=== PATIENT | male | born 1975 ===

== ENCOUNTER 2019-01-29 03:09 | Emergency (ER) | payer OTHER ==
[2019-01-29] MEDS ORDERED: Oxycodone/Acetaminophen 5/325 mg Tab PO STA (03:35)
[2019-01-29] MEDS ORDERED: Oxycodone/Acetaminophen 5/325 mg Tab ONE (03:49)
--- NOTE | 2019-01-29 04:15 | ED PDOC ---
Lower Extremity Pain/Injury Time Seen by Provider: 01/29/19 03:29 Chief Complaint (Nursing): Lower Extremity Problem/Injury Chief Complaint (Provider): Lower Extremity Problem/Injury History Per: Patient History/Exam Limitations: no limitations Additional Complaint(s): 43 y/o male presents to the ED complaining of pain to his left big toe. Patient reports he was carrying a microwave while climbing the stairs when he dropped it on his left big toe. Patient reports he has pain to his foot and cannot wiggle his toe. Denies bleeding or any other pain. Past Medical History Reviewed: Historical Data, Nursing Documentation, Vital Signs Vital Signs: Last Vital Signs Temp 99.3 F 01/29/19 03:15 Pulse 120 H 01/29/19 03:15 Resp 16 01/29/19 03:15 BP 156/92 H 01/29/19 03:15 Pulse Ox 98 01/29/19 03:15 - Family History Family History: States: Unknown Family Hx - Home Medications Home Medications: Ambulatory Orders Medication Instructions Recorded Naproxen [Naprosyn Tab] 375 mg PO Q8 PRN #21 tab 09/25/16 diaZEpam [Valium] 5 mg PO Q6 PRN #6 tab 09/25/16 - Allergies Allergies/Adverse Reactions: Allergies Allergy/AdvReac Type Severity Reaction Status Date / Time No Known Allergies Allergy Verified 09/25/16 11:54 Review of Systems ROS Statement: Except As Marked, All Systems Reviewed And Found Negative Musculoskeletal: Positive for: Foot Pain Physical Exam - Reviewed Nursing Documentation Reviewed: Yes Vital Signs Reviewed: Yes - Physical Exam Appears: Positive for: Well, Non-toxic, No Acute Distress Head Exam: Positive for: ATRAUMATIC, NORMAL INSPECTION, NORMOCEPHALIC Skin: Positive for: Normal Color, Warm, DRY Eye Exam: Positive for: EOMI, Normal appearance, PERRL Pulses-Dorsalis Pedis (L): 2+ Pulses-Dorsalis Pedis (R): 2+ Extremity: Positive for: Deformity (visible deformity to left hallux), Other (dorsal deviation at proximal joint). Negative for: Normal ROM (unable to move left hallux) Neurological/Psych: Positive for: Awake, Alert, Normal Tone. Negative for: Motor/Sensory Deficits - ECG O2 Sat by Pulse Oximetry: 98 (RA) Pulse Ox Interpretation: Normal Medical Decision Making Medical Decision Making: Time: 03:31 MDM: Workup for dislocation vs. fracture * Percocet for pain * X-rays * Most likely will order podiatry consult 05:32 Left foot RAD Findings: Acute complete dorsal dislocation of the proximal phalanx of the great at the level of the first metatarsophalangeal joint. Associated displaced fracture of the base of the proximal to the great toe. Overlying soft tissue edema and swelling. There is calcaneal spur formation. There is enthesophyte formation at the calcaneal insertion of the Achilles' tendon. Normal visualized distal tibia and medial malleolus. Normal visualized distal fibula and lateral malleolus. Normal tibiotalar articulation and ankle mortise. Normal visualized talus. The visualized subtalar, talonavicular, calcaneocuboid and tarsal articulations are normal. Impression: Acute complete dorsal dislocation of the proximal phalanx of the great at the level of the first metatarsophalangeal joint. Associated displaced fracture of the base of the proximal to the great toe. Overlying soft tissue edema and swelling. 06:42 Patient was seen and evaluated by podiatry. Dislocation was reduced and foot was placed in cast. Patient is to follow up in podiatry clinic within 1 week. Patient was given percocet for pain control as well as crutches and crutches instruction. Return parameters discussed. Scribe Attestation: Documented by Ab Kevin, acting as a scribe for Delia Sorto MD. Provider Scribe Attestation: All medical record entries made by the Scribe were at my direction and personally dictated by me. I have reviewed the chart and agree that the record accurately reflects my personal performance of the history, physical exam, medical decision making, and the department course for this patient. I have also personally directed, reviewed, and agree with the discharge instructions and disposition. Disposition - Disposition Condition: IMPROVED Forms: TRAFI)
[2019-01-29] MEDS ORDERED: Lidocaine 1% Inj (20ml) IJ ONE (06:09)
[2019-01-29] MEDS ORDERED: Lidocaine Hydrochloride 1% 0 ML ONE (06:11)
[2019-01-29 06:15] VITALS: BP 148/87; PULSE 91; RESP 17; TEMP 98.7
[2019-01-29] MEDS ORDERED: Lidocaine Hydrochloride 1% 10 ML ONE (06:19)
[2019-01-29 06:44] VITALS: O2SAT 98
--- NOTE | 2019-01-29 09:32 | CP.PCM.CON ---
History of Present Illness - History of Present Illness History of Present Illness: Podiatry Consult Note - Dr. Romero 43 year old male patient with no PMH seen and evaluated in the ED for left big toe pain, deformity and swelling. Patient states that his left foot was caught underneath him earlier today while carrying a microwave. He states that she immediately had swelling and felt pain and his left big toe poped out. Patient states that that pain and swelling got worse. He states that the pain is 8/10 when the toe is touched. Patient denies any tingling, numbness or burning sensation in his left foot. She denies any recent fever, nausea, vomiting, cough, chills or shortness of breathing. PMH: None PSH: None Allergies: NKDA. Social Hx: Denies smoking, EtOH use or illicit drug use. Review of Systems - Review of Systems Review of Systems: As per HPI Past Patient History - Past Social History Smoking Status: Never Smoked - PSYCHIATRIC Hx Substance Use: No - SURGICAL HISTORY Hx Surgeries: No - ANESTHESIA Hx Anesthesia: No Meds Home Medications: Home Medication List Medication Instructions Recorded Confirmed Type oxyCODONE/Acetaminophen [Percocet 1 ea PO Q6 #20 tab 01/29/19 Rx 5/325 mg Tab] Allergies/Adverse Reactions: Allergies Allergy/AdvReac Type Severity Reaction Status Date / Time No Known Allergies Allergy Verified 09/25/16 11:54 Physical Exam - Constitutional Appears: Well, Non-toxic, No Acute Distress - Head Exam Head Exam: ATRAUMATIC, NORMOCEPHALIC - Extremities Exam Additional comments: Left lower extremity focused exam: VASC: DP/PT pulses palpable 2/4; cap refill <3 seconds to all digits; temp gradient warm to cool, non-pitting edema and mild ecchymosis noted to the left big toe. NEURO: Gross and protective sensations are intact. DERM: Non-pitting edema and mild ecchymosis noted to the left big toe. No open lesions, No clinical signs of active infection. MSK: Pain on palpating the hallux. Pain with hallux ROM. Left hallux dorsally displaced at the MPJ. Muscle power intact 5/5 to all groups. - Neurological Exam Neurological exam: Alert, Oriented x3 - Psychiatric Exam Psychiatric exam: Normal Affect, Normal Mood Results - Vital Signs Recent Vital Signs: Last Vital Signs Temp 98.7 F 01/29/19 06:14 Pulse 91 H 01/29/19 06:14 Resp 17 01/29/19 06:14 BP 148/87 01/29/19 06:14 Pulse Ox 98 01/29/19 06:43 Assessment & Plan - Assessment and Plan (Free Text) Assessment: 43 year old male patient with no PMH seen and evaluated in the ED for left big toe fracture and dislocation of the left 1st MPJ Plan: Patient seen and evaluated at the bedside in the ED Plan discussed with Dr. Romero Charts and vitals reviewed: Afebrile. X-ray L foot: L 1st MPJ dorsal displacemment with lateral distal fracture of the 1st met. head. Patient received 10 cc of lidocaine 1% in local [place]allero block fashion to the left 1st ray. After confirming the local anesthesia status reduction of the left 1st MPJ performed. Bi-valved BK cast applied to the left LE. Patient instructed to keep the Cast clean/dry/intact Patient instructed to apply ice, Rest and elevate his left lower extremity Patient instructed to bear weight as tolerated to the left heel in a surgical shoe. Dispensed left surgical shoe. Patient expressed verbal understanding. Patient to follow up in Dr. Romero office upon discharge from the ED. Thank you for the consult - Date & Time Date: 01/29/19 Time: 09:35
--- NOTE | 2019-01-29 11:06 | RAD ---
Date of service: 01/29/2019 PROCEDURE: Left Foot Radiographs. HISTORY: Posttraumatic left foot pain COMPARISON: None. FINDINGS: BONES: No visible fracture. JOINTS: Dislocation 1st metatarsal phalangeal joint. SOFT TISSUES: Normal. OTHER FINDINGS: None. IMPRESSION: Dislocation without fracture 1st metatarsal phalangeal joint. Concordant findings (preliminary report) provided by KELLE OVERTON.
[2019-01-29] MEDS ORDERED: Acetaminophen 160 mg/5 ml UD ONE (18:53)
== END 2019-01-29 06:53 | disposition home or self-care (01) ==
LOC: H.ER 03:09
DX: S92.402A Displaced unspecified fracture of left great toe, initial encounter for closed fracture (principal); W22.8XXA Striking against or struck by other objects, initial encounter; Y92.89 Other specified places as the place of occurrence of the external cause